=== PATIENT | male | born 1995 | race Caucasian/White ===

== ENCOUNTER 2016-03-22 22:58 | Inpatient (IN) | payer BC ==
[~2016-03-22] VITALS: Ht 182.9 cm; Wt 74.7 kg
[2016-03-22] MEDS ORDERED: KETOROLAC TROMETHAMINE 30 MG/ML VIAL IV STA (23:17)
[2016-03-22] MEDS ORDERED: SODIUM CHLORIDE 0.9% 1000ML 1,000 ML IV STA (23:17)
--- NOTE | 2016-03-22 23:22 | EMERGENCY ROOM VISIT NOTE ---
History Report prepared by Dorian: Raffi Trevino Under the Supervision of: Dr. Davonte Roy M.D. First contact with patient: 23:11 Chief Complaint: ABDOMINAL PAIN Stated Complaint: LOWER RT ABD PAIN Nursing Triage Summary: pt c/o sudden onset of right lower abd pain. started at 2200. "started as a cramping and now is pretty sharp". denies n/v/d. last BM this am History of Present Illness The patient is a 20 year old male who presents to the Emergency Room with complaints of constant right lower quadrant abdominal pain, that began one hour prior to arrival. The patient states that he was hanging out with his friends when he experienced a sudden sharp/pinching pain in his right lower quadrant. The patient's pain is isolated to his abdomen and does not radiate into his flank or back. He is still experiencing the pain at this time. He had a normal bowel movement this morning. The patient denies any history of kidney stones. 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 A total of 10 systems reviewed and were otherwise negative. Past Medical & Surgical Medical Problems: (1) Left elbow fracture Family History FHx: cancer Kidney disease Kidney stones Social History Smoking Status: Never Smoker Drug Use: none Marital Status: single Housing Status: lives with roommate Occupation Status: [employer] Current/Historical Medications No Active Prescriptions or Reported Meds Allergies Coded Allergies: No Known Allergies (Unverified , 03/22/16) Physical Exam Vital Signs Date Time Temp Pulse Resp B/P Pulse Ox O2 Delivery O2 Flow Rate FiO2 03/23/16 01:48 68 16 137/77 97 Room Air 03/22/16 23:05 36.9 60 18 161/80 100 Room Air Physical Exam GENERAL: Patient is well appearing and in minimal distress. HEENT: No acute trauma, normocephalic atraumatic, mucous membranes moist, no nasal congestion, no scleral icterus. NECK: No stridor, no adenopathy, no meningismus, trachea is midline. LUNGS: No dyspnea. Clear to auscultation and equal bilaterally. No wheeze, no rhonchi. HEART: Regular rate and rhythm. No murmurs, rubs, gallops appreciated. ABDOMEN: Soft, nontender, bowel sounds positive, no masses appreciated, no peritonitis. BACK: No midline tenderness, no CVA tenderness EXTREMITIES: Normal motion all extremities, no cyanosis, no edema. NEUROLOGIC: Alert and oriented, no acute motor or sensory deficits, no focal weakness, cranial nerves grossly intact. SKIN: No rash, no jaundice, no diaphoresis. Medical Decision & Procedures ER Provider Diagnostic Interpretation: X ray results and stated below per my interpretation and radiologist interpretation. Other radiology results and stated below per my review and radiologist interpretation: CT SCAN OF THE ABDOMEN AND PELVIS WITHOUT IV CONTRAST CLINICAL HISTORY: Right flank pain. COMPARISON STUDY: Renal ultrasound dated 03/22/16. TECHNIQUE: CT scan of the abdomen and pelvis is performed from the lung bases to the proximal femora. Images are reviewed in the axial, sagittal, and coronal planes. IV contrast was not administered for this examination. Automated dose control exposure was utilized. CT DOSE: 525.49 mGy.cm FINDINGS: Lung bases: The heart is normal in size and without pericardial effusion. The lung bases are clear. Liver: The unenhanced liver is normal in size, contour, and attenuation. There is no intrahepatic biliary ductal dilatation. Gallbladder: Unremarkable. Spleen: Normal in size and attenuation. Pancreas: Unremarkable. Adrenal glands: Unremarkable. Kidneys: The unenhanced kidneys are normal in size. There is a 3 mm obstructing calculus at the right vesicoureteral junction seen on axial image #402. This causes mild right hydroureteronephrosis There are no additional renal calculi identified in either kidney, and there is no left-sided hydronephrosis. There is no evidence of contour deforming renal mass lesion. Abdominal vasculature: The abdominal aorta is normal in course and caliber. Bowel: The small bowel and colon are normal in course and caliber. The appendix is well-visualized and normal. Peritoneum: There is no intraperitoneal free air or abdominal ascites. There is a tiny fat-containing umbilical hernia. Lymphadenopathy: None. Pelvic viscera: The bladder, prostate, and seminal vesicles are normal as visualized. Skeletal structures: No lytic or blastic lesions are seen. IMPRESSION: 1. There is a 3 mm obstructing calculus at the right vesicoureteral junction. This causes mild right hydroureteronephrosis. 2. No additional calculi are identified in either kidney. Electronically signed by: Mukul Young M.D. 03/23/2016 12:53 AM Dictated Date/Time: 03/23/2016 12:48 AM ULTRASOUND KIDNEYS AND BLADDER CLINICAL HISTORY: Right-sided abdominal pain. Hematuria. COMPARISON STUDY: No priors. TECHNIQUE: Real-time, grayscale, and color flow sonography of the kidneys and bladder is performed. Images are reviewed in the transverse and longitudinal planes. FINDINGS: Kidneys: The kidneys are normal in size and echotexture. The right kidney measures 10.1 x 5.3 x 5.2 cm and the left kidney measures 9.8 x 5.0 x 5.5 cm. There is mild right-sided hydronephrosis. No hydronephrosis is seen on the left. No shadowing renal calculi are identified. There is no sonographic evidence of contour deforming renal mass lesion. No perinephric fluid is identified. Bladder: The bladder is decompressed and not well evaluated. Ureteral jets were not seen. IMPRESSION: 1. The kidneys are normal in size. 2. There is mild right-sided hydronephrosis. Given the history of right-sided pain and hematuria this is likely related to an obstructing right renal calculus. The calculus was not visualized. 3. There is no left-sided hydronephrosis. 4. The bladder was decompressed and not well assessed. Electronically signed by: Mukul Young M.D. 03/23/2016 12:10 AM Dictated Date/Time: 03/23/2016 12:08 AM ULTRASOUND OF THE APPENDIX CLINICAL HISTORY: Right lower quadrant abdominal pain. COMPARISON STUDY: No priors. FINDINGS: Real-time, grayscale, and color flow sonography of the right lower quadrant was performed to assess for acute appendicitis. The appendix was not discretely visualized. No inflammatory changes or free fluid are seen in the right lower quadrant. No lymphadenopathy was seen. IMPRESSION: Nonvisualization of the appendix. Note that this does not exclude acute appendicitis. Electronically signed by: Mukul Young M.D. 03/23/2016 12:08 AM Dictated Date/Time: 03/23/2016 12:07 AM Laboratory Results 03/22/16 23:29 Red Blood Count 5.71, Mean Corpuscular Volume 86.3, Mean Corpuscular Hemoglobin 30.8, Mean Corpuscular Hemoglobin Concent 35.7, Mean Platelet Volume 11.1, Neutrophils (%) (Auto) 70.5, Lymphocytes (%) (Auto) 20.1, Monocytes (%) (Auto) 8.3, Eosinophils (%) (Auto) 0.5, Basophils (%) (Auto) 0.3, Neutrophils # (Auto) 8.02, Lymphocytes # (Auto) 2.29, Monocytes # (Auto) 0.94, Eosinophils # (Auto) 0.06, Basophils # (Auto) 0.03 Test 03/22/16 00:00 03/22/16 23:29 Urine Color DK YELLOW Urine Appearance CLOUDY (CLEAR) Urine pH 5.0 (4.5-7.5) Urine Specific [place] 1.032 (1.000-1.030) Urine Protein 1+ (NEG) Urine Glucose (UA) NEG (NEG) Urine Ketones TRACE (NEG) Urine Occult Blood 3+ (NEG) Urine Nitrite NEG (NEG) Urine Bilirubin NEG (NEG) Urine Urobilinogen NEG (NEG) Urine Leukocyte Esterase NEG (NEG) Urine WBC (Auto) 1-5 /hpf (0-5) Urine RBC (Auto) >30 /hpf (0-4) Urine Hyaline Casts (Auto) 1-5 /lpf (0-5) Urine Epithelial Cells (Auto) 5-10 /lpf (0-5) Urine Bacteria (Auto) NEG (NEG) White Blood Count 11.37 K/uL (4.8-10.8) Red Blood Count 5.71 M/uL (4.7-6.1) Hemoglobin 17.6 g/dL (14.0-18.0) Hematocrit 49.3 % (42-52) Mean Corpuscular Volume 86.3 fL (80-100) Mean Corpuscular Hemoglobin 30.8 pg (25-34) Mean Corpuscular Hemoglobin Concent 35.7 g/dl (32-36) Platelet Count 288 K/uL (130-400) Mean Platelet Volume 11.1 fL (7.4-10.4) Neutrophils (%) (Auto) 70.5 % Lymphocytes (%) (Auto) 20.1 % Monocytes (%) (Auto) 8.3 % Eosinophils (%) (Auto) 0.5 % Basophils (%) (Auto) 0.3 % Neutrophils # (Auto) 8.02 K/uL (1.4-6.5) Lymphocytes # (Auto) 2.29 K/uL (1.2-3.4) Monocytes # (Auto) 0.94 K/uL (0.11-0.59) Eosinophils # (Auto) 0.06 K/uL (0-0.5) Basophils # (Auto) 0.03 K/uL (0-0.2) RDW Standard Deviation 38.6 fL (36.4-46.3) RDW Coefficient of Variation 12.2 % (11.5-14.5) Immature Granulocyte % (Auto) 0.3 % Immature Granulocyte # (Auto) 0.03 K/uL (0.00-0.02) Prothrombin Time 11.3 SECONDS (9.0-12.0) Prothromb Time International Ratio 1.1 (0.9-1.1) Activated Partial Thromboplast Time 23.6 SECONDS (21.0-31.0) Partial Thromboplastin Ratio 0.9 Est Creatinine Clear Calc Drug Dose 95.0 ml/min Direct Bilirubin 0.2 mg/dl (0-0.2) Lipase 149 U/L (73-393) Laboratory results as reviewed by me. Medications Administered Medications (Trade) Dose Ordered Sig/Bhakti Route Start Time Stop Time Status Last Admin Dose Admin Sodium Chloride (Nss 1000ml) 1,000 ml @ 999 mls/hr Q1H1M STAT IV 03/22/16 23:17 03/23/16 00:17 DC 03/22/16 23:30 999 MLS/HR Morphine Sulfate (MoRPHine SULFATE INJ) 6 mg NOW STAT IV 03/23/16 00:01 03/23/16 00:02 DC 03/23/16 00:11 6 MG Ondansetron HCl 4 mg 4 mg NOW STAT IV 03/23/16 00:01 03/23/16 00:02 DC 03/23/16 00:10 4 MG Sodium Chloride (Nss 1000ml) 1,000 ml @ 999 mls/hr Q1H1M STAT IV 03/23/16 00:03 03/23/16 01:03 DC 03/23/16 00:10 999 MLS/HR Hydromorphone HCl (Dilaudid Inj) 1 mg NOW STAT IV 03/23/16 00:38 03/23/16 00:40 DC 03/23/16 00:50 1 MG ED Course 2313: The patient was evaluated in room C9. A complete history and physical exam was performed. 2317: Ordered Toradol 30 mg IV, Sodium Chloride 1000 mL @ 999 mL/hr IV. 0001: Ordered Zofran 4 mg IV, Morphine Sulfate 6 mg IV. 0003: Ordered Sodium Chloride 1000 mL @ 999 mL/hr IV. 0006: The patient states that his pain has increased at this time. 0018: The patient states that he is still having pain. 0038: Ordered Dilaudid Inj 1 mg IV. 0155: I discussed the case with Dr. Javad PERKINS hospitalist, he will evaluate the patient for further treatment. Medical Decision Differential: Appendicitis, , MSK, Diverticulitis, UTI, Renal Colic, Bowel Obstruction, Aortic Pathology, amongst other pathologies entertained. 20 yr old male arrives for evaluation of RLQ pain over last few hours. Bloody urine and with minimal TTP on exam felt US reasonable. Has hydro of right kidney. Increasing pain requiring further rounds of narcotics, this with elevated LFTs lead to CT abdo/pelv for further evaluation of possible kidney stone (which he has never had before). CT with distal ureteral stone on right. With pain, stone and LFT elevation will bring in for further work-up and evaluation. Consults Time Called: 0105 Consulting Physician: Dr. Javad PERKINS Hospitalist Returned Call: [phone] I discussed the case with Dr. Javad PERKINS hospitalist, he will evaluate the patient for further treatment. Impression Primary Impression: Right ureteral stone Additional Impressions: Elevated liver function tests Hydronephrosis, right Scribe Attestation The scribe's documentation has been prepared under my direction and personally reviewed by me in its entirety. I confirm that the note above accurately reflects all work, treatment, procedures, and medical decision making performed by me. Departure Information Dispostion Being Evaluated By Hospitalist Prescriptions No Active Prescriptions or Reported Meds Referrals No Doctor, Assigned (PCP) Patient Instructions My [facility] Problem Qualifiers
[2016-03-22 23:40] LABS: BASO % 0.3 %; BASO ABS # 0.03 K/uL (0-0.2); COMPLETE YES; EOS % 0.5 %; HEMATOCRIT 49.3 % (42-52); IG% 0.3 %; LYMPH % 20.1 %; LYMPH ABS # 2.29 K/uL (1.2-3.4); MEAN CELL VOLUME 86.3 fL (80-100); MEAN CORPUSCULAR HEMOGLOBIN 30.8 pg (25-34); MEAN CORPUSCULAR HGB CONC 35.7 g/dl (32-36); MEAN PLATELET VOLUME 11.1 fL (7.4-10.4); MONO % 8.3 %; NEUT % 70.5 %; PLATELET COUNT 288 K/uL (130-400); RED BLOOD COUNT 5.71 M/uL (4.7-6.1); WHITE BLOOD COUNT 11.37 K/uL (4.8-10.8)
[2016-03-22 23:49] LABS: URINE APPEARANCE CLOUDY (CLEAR); URINE COLOR DK YELLOW; URINE NITRITE NEG (NEG); URINE SPECIFIC GRAVITY 1.032 (1.000-1.030); UROBILINOGEN NEG (NEG); ZZUR CULT IF INDIC CLEAN CATCH NO
[2016-03-22 23:52] LABS: MANUAL MICROSCOPIC REQUIRED? NO; REVIEW REQ? NO; URINE BILIRUBIN NEG (NEG)
[2016-03-22 23:58] LABS: CALCIUM 9.2 mg/dl (8.5-10.1); CREATININE 1.3 mg/dl (0.60-1.40); POTASSIUM 3.2 mmol/L (3.5-5.1)
[2016-03-23] MEDS ORDERED: ONDANSETRON INJ 2 MG/ML 2 ML VIAL IV STA (00:01)
[2016-03-23] MEDS ORDERED: MoRPHine SULFATE 10 MG/ML CARP/VIAL IV STA (00:01)
[2016-03-23] MEDS ORDERED: SODIUM CHLORIDE 0.9% 1000ML 1,000 ML IV STA (00:03)
--- NOTE | 2016-03-23 00:09 | DIAGNOSTIC IMAGING REPORT ---
ULTRASOUND OF THE APPENDIX CLINICAL HISTORY: Right lower quadrant abdominal pain. COMPARISON STUDY: No priors. FINDINGS: Real-time, grayscale, and color flow sonography of the right lower quadrant was performed to assess for acute appendicitis. The appendix was not discretely visualized. No inflammatory changes or free fluid are seen in the right lower quadrant. No lymphadenopathy was seen. IMPRESSION: Nonvisualization of the appendix. Note that this does not exclude acute appendicitis. Electronically signed by: Mukul Young M.D. 03/23/2016 12:08 AM Dictated Date/Time: 03/23/2016 12:07 AM
--- NOTE | 2016-03-23 00:11 | DIAGNOSTIC IMAGING REPORT ---
ULTRASOUND KIDNEYS AND BLADDER CLINICAL HISTORY: Right-sided abdominal pain. Hematuria. COMPARISON STUDY: No priors. TECHNIQUE: Real-time, grayscale, and color flow sonography of the kidneys and bladder is performed. Images are reviewed in the transverse and longitudinal planes. FINDINGS: Kidneys: The kidneys are normal in size and echotexture. The right kidney measures 10.1 x 5.3 x 5.2 cm and the left kidney measures 9.8 x 5.0 x 5.5 cm. There is mild right-sided hydronephrosis. No hydronephrosis is seen on the left. No shadowing renal calculi are identified. There is no sonographic evidence of contour deforming renal mass lesion. No perinephric fluid is identified. Bladder: The bladder is decompressed and not well evaluated. Ureteral jets were not seen. IMPRESSION: 1. The kidneys are normal in size. 2. There is mild right-sided hydronephrosis. Given the history of right-sided pain and hematuria this is likely related to an obstructing right renal calculus. The calculus was not visualized. 3. There is no left-sided hydronephrosis. 4. The bladder was decompressed and not well assessed. Electronically signed by: Mukul Young M.D. 03/23/2016 12:10 AM Dictated Date/Time: 03/23/2016 12:08 AM
[2016-03-23] MEDS ORDERED: HYDROmorphone INJ 1 MG/ML SYR IV STA (00:38)
--- NOTE | 2016-03-23 00:54 | DIAGNOSTIC IMAGING REPORT ---
CT SCAN OF THE ABDOMEN AND PELVIS WITHOUT IV CONTRAST CLINICAL HISTORY: Right flank pain. COMPARISON STUDY: Renal ultrasound dated 03/22/16. TECHNIQUE: CT scan of the abdomen and pelvis is performed from the lung bases to the proximal femora. Images are reviewed in the axial, sagittal, and coronal planes. IV contrast was not administered for this examination. Automated dose control exposure was utilized. CT DOSE: 525.49 mGy.cm FINDINGS: Lung bases: The heart is normal in size and without pericardial effusion. The lung bases are clear. Liver: The unenhanced liver is normal in size, contour, and attenuation. There is no intrahepatic biliary ductal dilatation. Gallbladder: Unremarkable. Spleen: Normal in size and attenuation. Pancreas: Unremarkable. Adrenal glands: Unremarkable. Kidneys: The unenhanced kidneys are normal in size. There is a 3 mm obstructing calculus at the right vesicoureteral junction seen on axial image #402. This causes mild right hydroureteronephrosis There are no additional renal calculi identified in either kidney, and there is no left-sided hydronephrosis. There is no evidence of contour deforming renal mass lesion. Abdominal vasculature: The abdominal aorta is normal in course and caliber. Bowel: The small bowel and colon are normal in course and caliber. The appendix is well-visualized and normal. Peritoneum: There is no intraperitoneal free air or abdominal ascites. There is a tiny fat-containing umbilical hernia. Lymphadenopathy: None. Pelvic viscera: The bladder, prostate, and seminal vesicles are normal as visualized. Skeletal structures: No lytic or blastic lesions are seen. IMPRESSION: 1. There is a 3 mm obstructing calculus at the right vesicoureteral junction. This causes mild right hydroureteronephrosis. 2. No additional calculi are identified in either kidney. Electronically signed by: Mukul Young M.D. 03/23/2016 12:53 AM Dictated Date/Time: 03/23/2016 12:48 AM
[2016-03-23 01:31] LABS: INR 1.1 (0.9-1.1); PARTIAL THROMBOPLASTIN RATIO 0.9; PROTHROMBIN TIME (PATIENT) 11.3 SECONDS (9.0-12.0)
[2016-03-23] MEDS ORDERED: CIPROFLOXACIN 400MG / 200ML D5W IV STA (02:27)
[2016-03-23] MEDS ORDERED: PROMETHAZINE HCL INJ 12.5 MG in SODIUM CHLORIDE 0.9% 50ML 50 ML IV PRN (02:30)
[2016-03-23] MEDS ORDERED: DiphenhydrAMINE HCL 50 MG/ML VIAL IV PRN (02:30)
[2016-03-23] MEDS ORDERED: MoRPHine SULFATE 4 MG/ML 1 ML CARP\\VIAL IV PRN (02:30)
[2016-03-23] MEDS ORDERED: LORAZEPAM 2 MG/ML 1 ML VIAL IV PRN (02:30)
[2016-03-23] MEDS ORDERED: ZOLPIDEM TARTRATE 5 MG TAB PO PRN (02:30)
[2016-03-23] MEDS ORDERED: PROMETHAZINE HCL INJ 25 MG in SODIUM CHLORIDE 0.9% 50ML 50 ML IV PRN (02:30)
[2016-03-23] MEDS ORDERED: MoRPHine SULFATE 2 MG/ML CARP IV PRN (02:30)
[2016-03-23] MEDS ORDERED: ONDANSETRON INJ 2 MG/ML 2 ML VIAL IV PRN (02:30)
[2016-03-23] MEDS ORDERED: NSS + 20MEQ KCL 1000ML 1,000 ML IV SCH (03:00)
[2016-03-23 03:06] VITALS: BP 144/77; PULSE 81; TEMP 36.8; O2SAT 95; Ht 182.9 cm; Wt 74.7 kg
[2016-03-23] MEDS ORDERED: LORAZEPAM INJ 0.5 MG in SYRINGE 0.75 ML IV PRN (03:15)
[2016-03-23] MEDS ORDERED: CIPROFLOXACIN / D5W 400 MG in PREMIXED IN D5W 200 ML IV SCH (04:00)
--- NOTE | 2016-03-23 04:29 | History and Physical ---
History & Physical Date & Time of Service: Mar 23, 2016 at 04:21 Chief Complaint: Elevated Lft's, Rt Ureteral Stone Primary Care Physician: [facility] History of Present Illness Source: patient The patient is a 20-year-old male who presents emergency department with complaint of right lower quadrant pelvic pain began about one hour prior to arrival. The pain is nonradiating and does not change with bowel movement or urine passage. He has no personal history kidney stones, but he does report that his maternal grandfather does have kidney stones. He reports that he did begin exercise program about 3 days ago, and did have significant muscle aches there were generalized at that time, and this point primarily has some mild chest soreness remaining. He denies taking any workout supplements. Past Medical/Surgical History Medical Problems: (1) Left elbow fracture Status: Resolved Family History FHx: cancer Kidney disease Kidney stones Social History Smoking Status: Never Smoker Smokeless Tobacco Use: No Alcohol Use: occasionally Drug Use: none Marital Status: single Occupational Status: [employer] student Multi-Drug Resistant Organisms History of MDRO: No Allergies Coded Allergies: No Known Allergies (Unverified , 03/22/16) Home Medications No Active Prescriptions or Reported Meds Review of Systems The patient denies palpitations, shortness of breath, cough, lower extremity swelling, vision change, hearing change, sore throat, fevers, chills, sweats, weight change, fatigue, nausea, vomiting, blood in urine or stool, dysuria, urinary frequency or urgency, lightheadedness, dizziness, headache, memory loss , rash, abnormal bruising or bleeding, imbalance, focal or generalized weakness , numbness or tingling in arms or legs, back or neck pain, night sweats, or allergy symptoms. The review of systems is otherwise negative other than for that already noted above, and at least 10 systems have been reviewed. Physical Exam Vital Signs Date Time Temp Pulse Resp B/P Pulse Ox O2 Delivery O2 Flow Rate FiO2 03/23/16 03:38 Room Air 03/23/16 03:06 36.8 81 16 144/77 95 Room Air 03/23/16 02:41 66 16 134/74 98 03/23/16 01:48 68 16 137/77 97 Room Air 03/22/16 23:05 36.9 60 18 161/80 100 Room Air The patient is awake, well-developed and adequately nourished, alert and oriented 3, normocephalic and atraumatic, lying in bed and in no acute distress. HEENT--PERRL, EOMI, mucous membranes and oropharynx moist. Neck--supple, no JVD or bruits, thyroid normal, trachea midline, no adenopathy. Heart--normal S1 and S2, no extra beats, no murmurs, rubs or gallops. Lungs--clear bilaterally with good air movement, no respiratory distress, no accessory muscle use. Abdomen--normal bowel sounds and soft, nontender and nondistended post IV pain medication, no hernias or masses, no organomegaly. Extremities--no cyanosis, clubbing or edema. There are good distal pulses b/l. Dermatologic--normal skin turgor, normal color, warm and dry, no abnormal lymph nodes, no rash. Neurologic--cranial nerves II through XII grossly intact, motor and sensory examination normal. Rheumatologic--normal range of motion, nontender, muscles and joints. Psychiatric--normal affect. Diagnostics Laboratory Results Results Past 24 Hours Test 03/22/16 23:29 Range/Units White Blood Count 11.37 4.8-10.8 K/uL Red Blood Count 5.71 4.7-6.1 M/uL Hemoglobin 17.6 14.0-18.0 g/dL Hematocrit 49.3 42-52 % Mean Corpuscular Volume 86.3 80-100 fL Mean Corpuscular Hemoglobin 30.8 25-34 pg Mean Corpuscular Hemoglobin Concent 35.7 32-36 g/dl Platelet Count 288 130-400 K/uL Mean Platelet Volume 11.1 7.4-10.4 fL Neutrophils (%) (Auto) 70.5 % Lymphocytes (%) (Auto) 20.1 % Monocytes (%) (Auto) 8.3 % Eosinophils (%) (Auto) 0.5 % Basophils (%) (Auto) 0.3 % Neutrophils # (Auto) 8.02 1.4-6.5 K/uL Lymphocytes # (Auto) 2.29 1.2-3.4 K/uL Monocytes # (Auto) 0.94 0.11-0.59 K/uL Eosinophils # (Auto) 0.06 0-0.5 K/uL Basophils # (Auto) 0.03 0-0.2 K/uL RDW Standard Deviation 38.6 36.4-46.3 fL RDW Coefficient of Variation 12.2 11.5-14.5 % Immature Granulocyte % (Auto) 0.3 % Immature Granulocyte # (Auto) 0.03 0.00-0.02 K/uL Prothrombin Time 11.3 9.0-12.0 SECONDS Prothromb Time International Ratio 1.1 0.9-1.1 Activated Partial Thromboplast Time 23.6 21.0-31.0 SECONDS Partial Thromboplastin Ratio 0.9 Sodium Level 145 136-145 mmol/L Potassium Level 3.2 3.5-5.1 mmol/L Chloride Level 103 98-107 mmol/L Carbon Dioxide Level 25 21-32 mmol/L Anion Gap 17.0 3-11 mmol/L Blood Urea Nitrogen 13 7-18 mg/dl Creatinine 1.30 0.60-1.40 mg/dl Est Creatinine Clear Calc Drug Dose 95.0 ml/min Estimated GFR () 90.4 Estimated GFR (Non- 78.0 BUN/Creatinine Ratio 10.0 10-20 Random Glucose 109 70-99 mg/dl Calcium Level 9.2 8.5-10.1 mg/dl Total Bilirubin 0.8 0.2-1 mg/dl Direct Bilirubin 0.2 0-0.2 mg/dl Aspartate Amino Transf (AST/SGOT) 747 15-37 U/L Alanine Aminotransferase (ALT/SGPT) 186 12-78 U/L Alkaline Phosphatase 83 45-117 U/L Total Creatine Kinase 80824 39-308 U/L Total Protein 8.4 6.4-8.2 gm/dl Albumin 5.0 3.4-5.0 gm/dl Lipase 149 73-393 U/L Diagnostic Radiology Patient Name: BUSHRA LORENZ Unit Number: [id number] Dictated: 03/23/166 Transcribed: 03/23/166 EV Printed Date/Time: [~ rep prt dt]/[~ rep prt tm] [~ rep ct labl] - [~ rep ct ivnm] [facility] [place] [address] Dictated: 03/23/166 Transcribed: 03/23/166 EV Printed Date/Time: [~ rep prt dt]/[~ rep prt tm] [~ rep ct labl] - [~ rep ct ivnm] [~ rep ct add3]] ULTRASOUND OF THE APPENDIX CLINICAL HISTORY: Right lower quadrant abdominal pain. COMPARISON STUDY: No priors. FINDINGS: Real-time, grayscale, and color flow sonography of the right lower quadrant was performed to assess for acute appendicitis. The appendix was not discretely visualized. No inflammatory changes or free fluid are seen in the right lower quadrant. No lymphadenopathy was seen. IMPRESSION: Nonvisualization of the appendix. Note that this does not exclude acute appendicitis. Electronically signed by: Mukul Young M.D. 03/23/2016 12:08 AM Dictated Date/Time: 03/23/2016 12:07 AM The status of this report is Signed. Draft = Not yet reviewed or approved by Radiologist. Signed = Reviewed and approved by Radiologist. <AttendingPhy></AttendingPhy> <FamilyPhy>No Doctor, Assigned</FamilyPhy> < PrimaryPhy>No Doctor, Assigned</PrimaryPhy> <UnitNumber>[id number]</UnitNumber> <VisitNumber>[id number]</VisitNumber> <PatientName>BUSHRA LORENZ</ PatientName> <DateOfBirth>1995</DateOfBirth> <Location>[facility]</Location> < ServiceDate>03/22/16</ServiceDate> <MNE>ESINDI</MNE> <OrderingPhy>Davonte Roy M.D.</OrderingPhy> <OrderingPhyMNE>f rep ord dr botello</OrderingPhyMNE> < DictatingPhyMNE>f rep dict dr botello</DictatingPhyMNE> <CCListMNE>f rep ct aleksandrae</ CCListMNE> <AdmittingPhyMNE>f pt admit dr botello</AdmittingPhyMNE> <AttendingPhyMNE >f pt attend dr botello</AttendingPhyMNE> <ConsultingPhyMNE>f pt consult dr botello</ConsultingPhyMNE> <FamilyPhyMNE>f pt fam dr botello</FamilyPhyMNE> <OtherPhyMNE>f pt other dr botello</OtherPhyMNE> < PrimaryPhyMNE>f pt prim care dr botello</PrimaryPhyMNE> <ReferringPhyMNE>f pt referring dr botello</ReferringPhyMNE> Patient Name: BUSHRA LORENZ Unit Number: [id number] Dictated: 03/23/167 Transcribed: 03/23/167 EV Printed Date/Time: [~ rep prt dt]/[~ rep prt tm] [~ rep ct labl] - [~ rep ct ivnm] [facility] [place] [address] Dictated: 03/23/167 Transcribed: 03/23/167 EV Printed Date/Time: [~ rep prt dt]/[~ rep prt tm] [~ rep ct labl] - [~ rep ct ivnm] [~ rep ct add3]] ULTRASOUND KIDNEYS AND BLADDER CLINICAL HISTORY: Right-sided abdominal pain. Hematuria. COMPARISON STUDY: No priors. TECHNIQUE: Real-time, grayscale, and color flow sonography of the kidneys and bladder is performed. Images are reviewed in the transverse and longitudinal planes. FINDINGS: Kidneys: The kidneys are normal in size and echotexture. The right kidney measures 10.1 x 5.3 x 5.2 cm and the left kidney measures 9.8 x 5.0 x 5.5 cm. There is mild right-sided hydronephrosis. No hydronephrosis is seen on the left. No shadowing renal calculi are identified. There is no sonographic evidence of contour deforming renal mass lesion. No perinephric fluid is identified. Bladder: The bladder is decompressed and not well evaluated. Ureteral jets were not seen. IMPRESSION: 1. The kidneys are normal in size. 2. There is mild right-sided hydronephrosis. Given the history of right-sided pain and hematuria this is likely related to an obstructing right renal calculus. The calculus was not visualized. 3. There is no left-sided hydronephrosis. 4. The bladder was decompressed and not well assessed. Electronically signed by: Mukul Young M.D. 03/23/2016 12:10 AM Dictated Date/Time: 03/23/2016 12:08 AM The status of this report is Signed. Draft = Not yet reviewed or approved by Radiologist. Signed = Reviewed and approved by Radiologist. <AttendingPhy></AttendingPhy> <FamilyPhy>No Doctor, Assigned</FamilyPhy> < PrimaryPhy>No Doctor, Assigned</PrimaryPhy> <UnitNumber>[id number]</UnitNumber> <VisitNumber>[id number]</VisitNumber> <PatientName>BUSHRA LORENZ</ PatientName> <DateOfBirth>1995</DateOfBirth> <Location>[facility]</Location> < ServiceDate>03/22/16</ServiceDate> <MNE>ESINDI</MNE> <OrderingPhy>Davonte Roy M.D.</OrderingPhy> <OrderingPhyMNE>f rep ord dr botello</OrderingPhyMNE> < DictatingPhyMNE>f rep dict dr botello</DictatingPhyMNE> <CCListMNE>f rep ct mne</ CCListMNE> <AdmittingPhyMNE>f pt admit dr botello</AdmittingPhyMNE> <AttendingPhyMNE >f pt attend dr botello</AttendingPhyMNE> <ConsultingPhyMNE>f pt consult dr botello</ConsultingPhyMNE> <FamilyPhyMNE>f pt fam dr botello</FamilyPhyMNE> <OtherPhyMNE>f pt other dr botello</OtherPhyMNE> < PrimaryPhyMNE>f pt prim care dr botello</PrimaryPhyMNE> <ReferringPhyMNE>f pt referring dr botello</ReferringPhyMNE> Patient Name: BUSHRA LORENZ Unit Number: [id number] Dictated: 03/23/1647 Transcribed: 03/23/1647 EV Printed Date/Time: [~ rep prt dt]/[~ rep prt tm] [~ rep ct labl] - [~ rep ct ivnm] [facility] [place] [address] Dictated: 03/23/1647 Transcribed: 03/23/1647 EV Printed Date/Time: [~ rep prt dt]/[~ rep prt tm] [~ rep ct labl] - [~ rep ct ivnm] CT SCAN OF THE ABDOMEN AND PELVIS WITHOUT IV CONTRAST CLINICAL HISTORY: Right flank pain. COMPARISON STUDY: Renal ultrasound dated 03/22/16. TECHNIQUE: CT scan of the abdomen and pelvis is performed from the lung bases to the proximal femora. Images are reviewed in the axial, sagittal, and coronal planes. IV contrast was not administered for this examination. Automated dose control exposure was utilized. CT DOSE: 525.49 mGy.cm FINDINGS: Lung bases: The heart is normal in size and without pericardial effusion. The lung bases are clear. Liver: The unenhanced liver is normal in size, contour, and attenuation. There is no intrahepatic biliary ductal dilatation. Gallbladder: Unremarkable. Spleen: Normal in size and attenuation. Pancreas: Unremarkable. Adrenal glands: Unremarkable. Kidneys: The unenhanced kidneys are normal in size. There is a 3 mm obstructing calculus at the right vesicoureteral junction seen on axial image #402. This causes mild right hydroureteronephrosis There are no additional renal calculi identified in either kidney, and there is no left-sided hydronephrosis. There is no evidence of contour deforming renal mass lesion. Abdominal vasculature: The abdominal aorta is normal in course and caliber. Bowel: The small bowel and colon are normal in course and caliber. The appendix is well-visualized and normal. Peritoneum: There is no intraperitoneal free air or abdominal ascites. There is a tiny fat-containing umbilical hernia. Lymphadenopathy: None. Pelvic viscera: The bladder, prostate, and seminal vesicles are normal as visualized. Skeletal structures: No lytic or blastic lesions are seen. IMPRESSION: 1. There is a 3 mm obstructing calculus at the right vesicoureteral junction. This causes mild right hydroureteronephrosis. 2. No additional calculi are identified in either kidney. Electronically signed by: Mukul Young M.D. 03/23/2016 12:53 AM Dictated Date/Time: 03/23/2016 12:48 AM The status of this report is Signed. Draft = Not yet reviewed or approved by Radiologist. Signed = Reviewed and approved by Radiologist. <AttendingPhy></AttendingPhy> <FamilyPhy>[facility]</FamilyPhy> <PrimaryPhy>[facility]</PrimaryPhy> <UnitNumber>[id number]</ UnitNumber> <VisitNumber>[id number]</VisitNumber> <PatientName>BUSHRA LORENZ </PatientName> <DateOfBirth>1995</DateOfBirth> <Location>[facility]</Location> <ServiceDate>03/22/16</ServiceDate> <MNE>ESINDI</MNE> <OrderingPhy>Davonte Roy M.D.</OrderingPhy> <OrderingPhyMNE>f rep ord dr botello</OrderingPhyMNE> < DictatingPhyMNE>f rep dict dr botello</DictatingPhyMNE> <CCListMNE>f rep ct ayan</ CCListMNE> <AdmittingPhyMNE>f pt admit dr botello</AdmittingPhyMNE> <AttendingPhyMNE >f pt attend dr botello</AttendingPhyMNE> <ConsultingPhyMNE>f pt consult dr botello</ConsultingPhyMNE> <FamilyPhyMNE>f pt fam dr botello</FamilyPhyMNE> <OtherPhyMNE>f pt other dr botello</OtherPhyMNE> < PrimaryPhyMNE>f pt prim care dr botello</PrimaryPhyMNE> <ReferringPhyMNE>f pt referring dr botello</ReferringPhyMNE> Impression Assessment and Plan 3 mm right vesicoureteral junction obstructing stone with mild right hydronephrosis--the patient will be admitted to the medical surgical floor, he' ll be kept nothing by mouth, placed on normal saline with potassium chloride 20 mEq at 100 ML's per hour, Zofran 4 mg IV every 6 hours when necessary nausea, pantoprazole 40 mg IV daily, and morphine sulfate 2-4 mg IV every [address] on Cipro 40 mg IV every 12 hours. We'll consult urology to see patient in the a.m. Rhabdomyolysis-- initial CK is 63,219. We'll follow serial CK enzymes, and hydrate as noted above. Abnormal liver enzymes--AST 747, ALT 186. Liver appeared normal on CAT scan. We'll follow serial enzyme studies. The patient denies any alcohol use. This may be secondary to rhabdomyolysis. Hypokalemia--replaced IV fluids as noted above, and follow serial BMP and magnesium levels. Level of Care Med/Surg Advanced Directives Existing Advance Directive: No Existing Living Will: No Existing Power of Public Finance Specialist: No Resuscitation Status FULL RESUSCITATION VTE Prophylaxis VTE Risk Assessment Done? Y/N: Yes Risk Level: Low Given or contraindicated: SCD's Social Service Consult None Apply
[2016-03-23 06:11] LABS: BUN/CREATININE RATIO 9.3 (10-20); CALCIUM 8.3 mg/dl (8.5-10.1); CREATININE 0.97 mg/dl (0.60-1.40); POTASSIUM 3.9 mmol/L (3.5-5.1)
[2016-03-23 06:22] LABS: ALB/GLOB RATIO 1.5 (0.9-2)
[2016-03-23 06:59] VITALS: BP 124/67; PULSE 69; TEMP 36.5; O2SAT 99
--- NOTE | 2016-03-23 10:23 | DIAGNOSTIC IMAGING REPORT ---
KUB CLINICAL HISTORY: Nephrolithiasis. FINDINGS: 2 AP supine abdominal radiographs are correlated with abdominal CT performed the same day 03/23/2016. There is a nonobstructed abdominal bowel gas pattern. A 3 mm obstructing calculus at the right vesicoureteral junction is unchanged. Left pelvic phleboliths are observed. No additional calcifications project over the kidneys. The bony structures appear intact. The lung bases are clear. IMPRESSION: Unchanged appearance of a 3 mm obstructing calculus at the right vesicoureteral junction as compared to today's CT scan. Electronically signed by: Mukul Young M.D. 03/23/2016 10:22 AM Dictated Date/Time: 03/23/2016 10:20 AM
--- NOTE | 2016-03-23 10:29 | Urology Consultation ---
History General Date of Service: Mar 23, 2016. Primary Care Physician: [facility] History of Present Illness Patient is a 20-year-old white male admitted through the emergency room with renal colic secondary to a 2.5 mm right ureterovesical junction stone. He had no fevers or chills. He was given pain medications and today says the pain is completely gone. While in the hospital he had no fevers or chills nausea or vomiting. Laboratory Last 24 Hours Test 03/22/16 23:29 03/23/16 05:15 White Blood Count 11.37 K/uL Red Blood Count 5.71 M/uL Hemoglobin 17.6 g/dL Hematocrit 49.3 % Mean Corpuscular Volume 86.3 fL Mean Corpuscular Hemoglobin 30.8 pg Mean Corpuscular Hemoglobin Concent 35.7 g/dl Platelet Count 288 K/uL Mean Platelet Volume 11.1 fL Neutrophils (%) (Auto) 70.5 % Lymphocytes (%) (Auto) 20.1 % Monocytes (%) (Auto) 8.3 % Eosinophils (%) (Auto) 0.5 % Basophils (%) (Auto) 0.3 % Neutrophils # (Auto) 8.02 K/uL Lymphocytes # (Auto) 2.29 K/uL Monocytes # (Auto) 0.94 K/uL Eosinophils # (Auto) 0.06 K/uL Basophils # (Auto) 0.03 K/uL RDW Standard Deviation 38.6 fL RDW Coefficient of Variation 12.2 % Immature Granulocyte % (Auto) 0.3 % Immature Granulocyte # (Auto) 0.03 K/uL Prothrombin Time 11.3 SECONDS Prothromb Time International Ratio 1.1 Activated Partial Thromboplast Time 23.6 SECONDS Partial Thromboplastin Ratio 0.9 Sodium Level 145 mmol/L 145 mmol/L Potassium Level 3.2 mmol/L 3.9 mmol/L Chloride Level 103 mmol/L 110 mmol/L Carbon Dioxide Level 25 mmol/L 26 mmol/L Anion Gap 17.0 mmol/L 9.0 mmol/L Blood Urea Nitrogen 13 mg/dl 9 mg/dl Creatinine 1.30 mg/dl 0.97 mg/dl Est Creatinine Clear Calc Drug Dose 95.0 ml/min 127.3 ml/min Estimated GFR () 90.4 128.8 Estimated GFR (Non- 78.0 111.1 BUN/Creatinine Ratio 10.0 9.3 Random Glucose 109 mg/dl 111 mg/dl Calcium Level 9.2 mg/dl 8.3 mg/dl Total Bilirubin 0.8 mg/dl 0.9 mg/dl Direct Bilirubin 0.2 mg/dl Aspartate Amino Transf (AST/SGOT) 747 U/L 604 U/L Alanine Aminotransferase (ALT/SGPT) 186 U/L 155 U/L Alkaline Phosphatase 83 U/L 62 U/L Total Creatine Kinase 65432 U/L 62684 U/L Total Protein 8.4 gm/dl 6.4 gm/dl Albumin 5.0 gm/dl 3.8 gm/dl Lipase 149 U/L Magnesium Level 2.0 mg/dl Globulin 2.6 gm/dl Albumin/Globulin Ratio 1.5 Problem List Medical Problems: (1) Elevated liver function tests Status: Acute (2) Hydronephrosis, right Status: Acute (3) Right ureteral stone Status: Acute Family History FHx: cancer Kidney disease Kidney stones Social History Hx Tobacco Use In Past Year?: No Marital status: single Occupation status: [employer] student History of MDRO No Allergies Coded Allergies: No Known Allergies (Unverified , 03/22/16) Medications Home Medications: Home Meds and Scripts Medications Dose Route/Sig Max Daily Dose Days Date Category No Active Prescriptions or Reported Medications Rx Inpatient Medications: Current Inpatient Medications Medications (Trade) Dose Ordered Sig/Bhakti Route Start Time Stop Time Status Last Admin Dose Admin Zolpidem Tartrate (Ambien Tab) 5 mg HSZ PRN PO 03/23/16 02:30 04/22/16 02:29 Diphenhydramine HCl 25 mg 25 mg Q4H PRN IV 03/23/16 02:30 04/22/16 02:29 Promethazine HCl/ Sodium Chloride (Phenergan Inj/ Nss 50ml) 50.5 ml @ 202 mls/hr Q4H PRN IV 03/23/16 02:30 04/22/16 02:29 Ondansetron HCl (Zofran Inj) 4 mg Q6H PRN IV 03/23/16 02:30 04/22/16 02:29 Morphine Sulfate (MoRPHine SULFATE INJ) 2 mg Q2H PRN IV 03/23/16 02:30 04/06/16 02:29 Morphine Sulfate 4 mg 4 mg Q2H PRN IV 03/23/16 02:30 04/06/16 02:29 Potassium Chloride/Sodium Chloride 1,000 ml @ 100 mls/hr Q10H IV 03/23/16 03:00 04/22/16 02:59 03/23/16 03:24 100 MLS/HR Ciprofloxacin/ Dextrose 400 mg/ Prmx 200 ml @ 100 mls/hr Q12H IV 03/23/16 04:00 04/02/16 03:59 03/23/16 03:25 100 MLS/HR Promethazine HCl 25 mg/Sodium Chloride 51 ml @ 204 mls/hr Q6H PRN IV 03/23/16 02:30 04/22/16 02:29 Lorazepam/Syringe (Ativan Inj/ Syringe) 1 ml @ 1 mls/min Q4H PRN IV 03/23/16 03:15 04/22/16 03:14 Review of Systems Review of Systems Additional Comments: Review of systems was reviewed from his admitting history and physical Physical Exam Vital Signs: Vital Signs Past 12 Hours Date Time Temp Pulse Resp B/P Pulse Ox O2 Delivery O2 Flow Rate FiO2 03/23/16 07:45 Room Air 03/23/16 06:59 36.5 69 14 124/67 99 Room Air 03/23/16 03:38 Room Air 03/23/16 03:06 36.8 81 16 144/77 95 Room Air 03/23/16 02:41 66 16 134/74 98 03/23/16 01:48 68 16 137/77 97 Room Air 03/22/16 23:05 36.9 60 18 161/80 100 Room Air Physical Exam: General Appearance: WD/WN, no apparent distress Eyes: bilateral eyes normal inspection ENT: hearing grossly normal Respiratory/Chest: lungs clear, normal breath sounds, no respiratory distress, no accessory muscle use Cardiovascular: regular rate, rhythm, no edema, no murmur Gastrointestinal: Abdomen: normal abdomen Genitourinary - Male: Urethral Meatus: normal urethral meatus Testes: normal testes Epididymides: normal epididymides Scrotum: normal scrotum Skin: normal color Assessment & Plan Assessment & Plan Assessment #1 2.5 mm distal right ureteral calculus I reviewed the CT scan with the patient We discussed options including trial of passage with medical expulsive therapy or ureteroscopy with extraction of stone and stent Since the patient is having no pain currently he would rather just try to pass this on his own I told him if he gets a fever or shaking chills he needs to have a stent placed emergently otherwise passing the stone on his own would be preferable to surgery I would send him home on the appropriate pain medication and also on Flomax 0.4 mg daily one half hour after a meal He should strain his urine to catch the stone and bring it to our office I will get him a regular diet today and he can probably be discharged later today as long as he is doing okay
[2016-03-23] MEDS ORDERED: TAMS0.4C38 PO (11:16)
[2016-03-23] MEDS ORDERED: HYDR-3983 PO (11:16)
--- NOTE | 2016-03-23 11:31 | Discharge Instructions ---
Discharge Instructions Admission Reason for Admission: Elevated Lft's, Rt Ureteral Stone Discharge Discharge Diagnosis / Problem: 1. Right sided Ureterovesical stone 2.5 mm. Discharge Goals Goal(s): Decrease discomfort, Therapeutic intervention Activity Recommendations Activity Limitations: resume your previous activity Lifting Limitations: none Exercise/Sports Limitations: as tolerated May Resume Sexual Activity: when tolerated Shower/Bathe: no limitations Driving or Machine Use: DO NOT DRIVE OR OPERATE EQUIPMENT WHEN UNDER THE INFLUENCE OF YOUR PAIN MEDICATION. . Instructions / Follow-Up Instructions / Follow-Up 1. Drink plenty of fluids (water / gatorade) in an effort to push kidney stone through. 2. Use pain medication only as directed. 3. Take Flomax 0.4 mg daily -which relaxes smooth muscle - thereby dilating your ureters and urinary sphincters. 4. Strain all urines --- If you pass your kidney stone, keep it and take to your Urologist's office for analysis. 5. Seek immediate medical attention if you develop fever, chills, or refractory pain. 6. Call Dr. Price's office [phone] to schedule a follow up appointment sometime this week. Current Hospital Diet Patient's current hospital diet: Regular Diet Discharge Diet Recommended Diet: N/A Fluid Restriction: None Procedures Procedures Performed: CT scan of the abdomen and pelvis Pending Studies Studies pending at discharge: no Medical Emergencies . Who to Call and When: Medical Emergencies: If at any time you feel your situation is an emergency, please call 911 immediately. . Non-Emergent Contact Non-Emergency issues call your: Urologist (Call your Urologist if any symptoms associated with urinary symptoms or stone symptoms.) . . "Provider Documentation" section prepared by Marlo Haque. VTE Core Measure Inpt VTE Proph given/why not?: SCD's, Treatment not indicated
[2016-03-23 11:51] VITALS: BP 124/67; PULSE 69; TEMP 36.5; O2SAT 99
--- NOTE | 2016-03-23 16:15 | DISCHARGE SUMMARY ---
ADMITTING DIAGNOSIS: 1. Right-sided ureteral colic secondary to nephrolithiasis. 2. Marked elevation of CPK and abnormal liver function tests ? likely secondary to new exercise program, began Friday with heavy intense weightlifting. HISTORY OF PRESENT ILLNESS: Mr. 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 It did not radiate anywhere else, and he did not have any fever or chills with it. He further denied any associated urinary symptoms. No dysuria, urinary frequency, or urgency or dysuria. Further evaluation revealed a 2.5 mm stone in his right ureter vesicle junction. Additionally, on his lab work he was noted to have a markedly elevated CK level along with elevated LFTs. The patient admittedly started a very new and intensive weight training program on Friday. He has had extremely sore chest since that time. This is most likely secondary to his new workout program. His CK levels and liver enzymes have improved dramatically in the past 12 hours. The patient was admitted for vigorous IV fluids, and he was also started empirically on levofloxacin to reduce the risk of infection associated with kidney stones. He underwent a series of tests including serial laboratories, CT scan of the abdomen and pelvis, renal ultrasound, appendiceal ultrasound, and an abdominal flat plate. Only significant finding was mild right hydronephrosis, and a 2.5 mm right ureteral vesicle stone. The patient has remained asymptomatic since admission. He has not had any further abdominal pain. He has not yet passed his kidney stone. He was evaluated by urology, suggested the patient over-hydrate in an effort to flush the stone from his ureter. However, if it does not pass this way, could potentially have it removed cystoscopically. Nonetheless, the patient is feeling well, and urology has cleared him to go home. PHYSICAL EXAMINATION: VITAL SIGNS: Temperature is 36.5 degrees Celsius, pulse 68 and regular, respiratory rate is 14 and unlabored, blood pressure is 124/67. SPO2 is 99% on room air. GENERAL: The patient is in no acute distress. HEENT: Head is atraumatic, normocephalic. EOMs intact. Sclerae are anicteric. Facies symmetric. No perioral cyanosis. Mucous membranes moist. NECK: Without thyromegaly, adenopathy, or JVD. CHEST AND LUNGS: Clear to auscultation throughout all lung nuñez. No wheezes, rales or rhonchi. CARDIOVASCULAR: S1 and S2 are regular without murmur, gallop or rub. PMI is not displaced. No lifts, heaves, or thrills. No abdominal aortic or renal bruits. ABDOMINAL EXAM: Bowel sounds present. No masses, organomegaly. There is no tenderness. No guarding, rigidity or rebound tenderness. EXTREMITIES: Without clubbing, cyanosis or edema. NEUROLOGIC: The patient is awake, alert and oriented. Pleasant and cooperative. Answers questions appropriately. Speech is clear. Normal movement in all 4 extremities. MUSCULOSKELETAL: Reveals reproducible pectoralis major tenderness to palpation. LABORATORIES: Sodium 145 mmol/L, potassium 3.9 mmol/L, BUN 9 mg/dL, creatinine 0.97 mg/dL, random glucose 111 mg/dL. Magnesium level 2.0 mg/dL. Total bilirubin and direct bilirubin are within normal limits. AST 640 units/L, ALT 155 units/L. Total CK 49,902. Serum lipase level 149 units/L. Urinalysis shows dark yellow appearance, 1+ urine protein, trace ketones, 3+ occult urinary blood, greater than 30 RBCs per high power field, and 5-10 epithelial cells per high power field. Urine bacteria negative. KUB showed a 3 mm obstructing calculus at the right vesicoureteral junction consistent with findings on CT scan of the abdomen and pelvis. Renal ultrasound showed mild right-sided hydronephrosis secondary to nephrolithiasis. Appendiceal ultrasound, no appendix was visualized. DISCHARGE MEDICATIONS: 1. Flomax 0.4 mg daily with meal. 2. Woronoco 7.5/325 one tablet every 4 hours as needed for pain. FOLLOW-UP INSTRUCTIONS: 1. The patient was encouraged to drink plenty of fluids, water and Gatorade (in an effort to flush kidney stones through). 2. He was advised to use Woronoco 7.5/325 as directed. He is warned of potential side effects. 3. Take Flomax as directed. He may stop taking Flomax after he passes the stone. 4. Strain all urine. If he passes his kidney stone he is advised to keep it and take it to the urologist office for analysis. 5. Seek immediate medical attention if he develops fevers, chills, or refractory pain related to ureteral colic. 6. Follow up with visit with Dr. Price within the next week. The patient verbalized understanding of these instructions. He is to call if any problems, questions, or change in clinical status. All of his questions were answered to his satisfaction. ALEXI
== END 2016-03-23 12:14 | disposition home or self-care (01) | DRG 694 ==
LOC: ENRESERVDT → ENRESERVTM → C.EDB 22:59 → C.MSW 03-23 02:26
PROVIDERS: ADMIT Hospitalist; ATTEND Hospitalist
DX: N13.2 Hydronephrosis with renal and ureteral calculous obstruction (principal); M62.82 Rhabdomyolysis; E87.6 Hypokalemia; K42.9 Umbilical hernia without obstruction or gangrene